=== PATIENT | female | born 1995 | race American Indian/Alaskan Native ===

== ENCOUNTER 2017-01-23 08:06 | Emergency (ER) | payer MEDICAID ==
[2017-01-23 08:16] VITALS: BP 101/63
[2017-01-23 08:43] LABS: Basophils % (Auto) 0.3 % (0.0-1.8); Eosinophils % (Auto) 0.3 % (0.0-4.3); Hematocrit 29.8 % (30.3-42.9); Hemoglobin 10.1 gm/dl (10.1-14.3); Mean Corpuscular HGB Conc 34 % (30-34); Mean Corpuscular Hemoglobin 30 pg (28-32); Mean Corpuscular Volume 89 fl (79-97); Red Blood Count 3.37 M/mm3 (3.65-5.03); Red Cell Distribution Width 12.5 % (13.2-15.2); White Blood Count 8.6 K/mm3 (4.5-11.0)
[2017-01-23 08:44] LABS: Platelet Count 90 K/mm3 (140-440)
[2017-01-23 09:01] LABS: Anion Gap 17 mmol/L; Blood Urea Nitrogen 9 mg/dL (7-17); Carbon Dioxide 22 mmol/L (22-30); Chloride 100.2 mmol/L (98-107); Glucose 65 mg/dL (65-100); Potassium 3.7 mmol/L (3.6-5.0); Sodium 135 mmol/L (137-145)
[2017-01-23 09:36] LABS: Bilirubin,Urine NEG (Negative); Blood,Urine NEG (Negative); Ketones,Urine TR mg/dL (Negative); Leukocyte Esterase,Urine NEG (Negative); Mucus,Urine 2+ /HPF; Nitrite,Urine NEG (Negative); Protein,Urine <15 mg/dL mg/dL (Negative); Urobilinogen,Urine < 2.0 mg/dL (<2.0)
--- NOTE | 2017-01-27 07:21 | ED Elopement Review ---
ED Pt Elopement review - Results review Lab results: Laboratory Tests 01/23/17 01/23/17 01/23/17 08:26 08:28 08:47 WBC 8.6 RBC 3.37 L Hgb 10.1 Hct 29.8 L MCV 89 MCH 30 MCHC 34 RDW 12.5 L Plt Count 90 L Lymph % (Auto) 23.7 [place] % (Auto) 8.1 H Eos % (Auto) 0.3 Baso % (Auto) 0.3 Lymph # 2.0 [place]ot # 0.7 Eos # 0.0 Baso # 0.0 Seg Neutrophils % 67.6 Seg Neutrophils # 5.8 Sodium 135 L Potassium 3.7 Chloride 100.2 Carbon Dioxide 22 Anion Gap 17 BUN 9 Creatinine 0.5 L Estimated GFR > 60 BUN/Creatinine Ratio 18.00 Glucose 65 Calcium 9.0 Urine Color Yellow Urine Turbidity Clear Urine pH 6.0 Ur Specific Horton 1.019 Urine Protein <15 mg/dl Urine Glucose (UA) Neg Urine Ketones Tr Urine Blood Neg Urine Nitrite Neg Urine Bilirubin Neg Urine Urobilinogen < 2.0 Ur Leukocyte Esterase Neg Urine WBC (Auto) 1.0 Urine RBC (Auto) 5.0 U Epithel Cells (Auto) 2.0 Urine Mucus 2+ - Call Back decision Pt Call Back Decision: No action required
== END 2017-01-23 17:25 | disposition left against medical advice (07) ==
LOC: ED 08:06
DX: R42 Dizziness and giddiness (principal); O26.893 Other specified pregnancy related conditions, third trimester; R50.9 Fever, unspecified; R51 Headache; Z3A.29 29 weeks gestation of pregnancy; Z53.21 Procedure and treatment not carried out due to patient leaving prior to being seen by health care provider
CPT/HCPCS: 36415; 80048; 81001; 85025; 93005; 93010

== ENCOUNTER 2017-02-07 21:21 | Outpatient (CLI) | payer MEDICAID ==
[2017-02-07 21:40] VITALS: BP 111/64
[2017-02-07] MEDS ORDERED: LACTATED RINGERS 1,000 ML IV ONE (21:40)
[2017-02-07 23:38] LABS: Bilirubin,Urine NEG (Negative); Blood,Urine NEG (Negative); Ketones,Urine NEG (Negative); Leukocyte Esterase,Urine NEG (Negative); Mucus,Urine 3+ /HPF; Nitrite,Urine NEG (Negative)
[2017-02-08] MEDS ORDERED: BRETHINE SUB-Q ONE (00:02)
[2017-02-08] MEDS ORDERED: BRETHINE ONE (00:04)
== END 2017-02-08 00:25 | disposition home or self-care (01) ==
LOC: TRG 21:21
PROVIDERS: ATTEND Obstetrics & Gynecology
DX: O26.893 Other specified pregnancy related conditions, third trimester (principal); R10.9 Unspecified abdominal pain; Z3A.32 32 weeks gestation of pregnancy
CPT/HCPCS: 36415; 59025; 81001; 82731; 96360; 96361; 96372; J3105; J7120

== ENCOUNTER 2017-03-25 16:25 | Outpatient (CLI) | payer MEDICAID ==
[2017-03-25 16:59] VITALS: BP 102/57
[2017-03-25] MEDS ORDERED: LACTATED RINGERS 500 ML IV ONE (17:18)
== END 2017-03-25 17:33 | disposition home or self-care (01) ==
LOC: TRG 16:25
PROVIDERS: ATTEND Obstetrics & Gynecology
DX: O47.1 False labor at or after 37 completed weeks of gestation (principal); Z3A.38 38 weeks gestation of pregnancy

== ENCOUNTER 2017-04-01 22:04 | Outpatient (CLI) | payer MEDICAID ==
[2017-04-01 22:20] VITALS: BP 108/73
[2017-04-01] MEDS ORDERED: LACTATED RINGERS 1,000 ML ONE (22:30)
[2017-04-01] MEDS ORDERED: VISTARIL ONE (23:40)
--- NOTE | 2017-04-02 12:33 | Ultrasound Report ---
BIOPHYSICAL PROFILE: 04/01/17 22:04:00 CLINICAL: Well Being FINDINGS: The biophysical profile was scored as followin - breathing movements 2 - movements 2 - posture and tone 2 - Qualitative amniotic fluid volume 8 - TOTAL SCORE OF POSSIBLE 8 Heart Rate (bpm) = 148 IMPRESSION: Normal study
--- NOTE | 2017-04-02 12:34 | Ultrasound Report ---
OB ULTRASOUND LIMITED: 04/01/17 CLINICAL: well being. FINDINGS: Gestation: Choudhary Position: Cephalic. Amniotic Fluid: Normal ANDREA = 10.1 cm Placenta: Posterior Placental Grade: II Heart Rate: 148 BPM IMPRESSION: Single live intrauterine fetus at 39 weeks based on clinical dating.
== END 2017-04-02 00:22 | disposition home or self-care (01) ==
LOC: TRG 22:04 → LD 23:29 → UNDOADMIN 23:29 → TRG 04-02 00:22
PROVIDERS: ATTEND Obstetrics & Gynecology
DX: O47.1 False labor at or after 37 completed weeks of gestation (principal); Z87.891 Personal history of nicotine dependence; Z3A.39 39 weeks gestation of pregnancy
CPT/HCPCS: 76815; 76819; 96360; J7120; Q0177

== ENCOUNTER 2017-04-02 06:00 | Outpatient (CLI) | payer MEDICAID ==
[2017-04-02 06:32] VITALS: BP 126/92
== END 2017-04-02 07:13 | disposition home or self-care (01) ==
LOC: TRG 06:00
PROVIDERS: ATTEND Obstetrics & Gynecology
DX: O47.1 False labor at or after 37 completed weeks of gestation (principal); Z87.891 Personal history of nicotine dependence; Z3A.39 39 weeks gestation of pregnancy
CPT/HCPCS: 59025

== ENCOUNTER 2017-04-03 19:14 | Inpatient (IN) | payer MEDICAID ==
[2017-04-03] MEDS ORDERED: STADOL IV PRN (21:26)
[2017-04-03] MEDS ORDERED: POLYCILLIN/NS 2 GM/100 ML 2 GM/100 ML BAG IV ONE (21:26)
[2017-04-03] MEDS: LACTATED RINGERS 1,000 ML IV SCH (22:23)
[2017-04-03 23:04] LABS: Basophils % (Auto) 0.1 % (0.0-1.8); Hematocrit 30.4 % (30.3-42.9); Mean Corpuscular HGB Conc 33 % (30-34); Mean Corpuscular Hemoglobin 28 pg (28-32); Mean Corpuscular Volume 84 fl (79-97); Platelet Count 102 K/mm3 (140-440); Red Blood Count 3.61 M/mm3 (3.65-5.03); White Blood Count 13.4 K/mm3 (4.5-11.0)
[2017-04-04] MEDS ORDERED: ePHEDrine SULFATE IV PRN (00:17)
[2017-04-04] MEDS ORDERED: NARCAN 2 MG/2 ML IV PRN (00:17)
--- NOTE | 2017-04-04 00:17 | Anesthesia Consultation ---
Anesthesia Consult and Med Hx Date of service: 04/04/17 - Airway Anesthetic Teeth Evaluation: Good ROM Head & Neck: Adequate Mental/Hyoid Distance: Adequate Mallampati Class: Class II Intubation Access Assessment: Good - Pulmonary Exam CTA: Yes - Cardiac Exam Cardiac Exam: No Murmur - Pre-Operative Health Status ASA Pre-Surgery Classification: ASA2 Proposed Anesthetic Plan: Epidural - Pulmonary Hx Asthma: No COPD: No Hx Pneumonia: No - Cardiovascular System Hx Hypertension: No - Central Nervous System Hx Seizures: No Hx Psychiatric Problems: No - Endocrine Hx Renal Disease: No Hx End Stage Renal Disease: No Hx Hypothyroidism: No Hx Hyperthyroidism: No - Hematic Hx Anemia: No Hx Sickle Cell Disease: No - Other Systems Hx Alcohol Use: No
[2017-04-04] MEDS: fentaNYL-BUPIV 2 MCG/ML-0.125% 200 MCG/100 ML BAG EPIDURAL SCH ×2 (00:38→08:12)
[2017-04-04] MEDS: POLYCILLIN/NS 1 GM/50 ML 1 GM/50 ML BAG IV SCH ×3 (02:52→11:00)
[2017-04-04] MEDS ORDERED: TYLENOL #3 PO ONE (05:26)
[2017-04-04] MEDS ORDERED: TYLENOL ONE (05:33)
[2017-04-04] MEDS ORDERED: TYLENOL PO ONE (05:40)
[2017-04-04] MEDS ORDERED: EMLA TP PRN (06:20)
[2017-04-04] MEDS ORDERED: REGLAN IV ONE (06:20)
[2017-04-04] MEDS ORDERED: BICITRA PO ONE (06:20)
[2017-04-04] MEDS ORDERED: PEPCID IV ONE (06:20)
--- NOTE | 2017-04-04 06:39 | History and Physical Report ---
History of Present Illness Date of examination: 04/04/17 Date of admission: 04/03/17 22:14 Chief complaint: Painful contractions History of present illness: Asked to see this 21-year-old at 39+ weeks admitted earlier in the p.m. by the odd piece checker. She is a [facility] patient. Patient was apparently admitted to rule out labor. She gives a history of unremarkable care. In triage, there is a report of thick mucous discharge but no pooling noted. Patient was admitted and observed. On the floor however patient with minimal variability initially. BPP obtained 8 out of 8. Patient subsequently developed a fever of 100.5 station with tachycardia. She has been started on Tylenol and ampicillin. Past History Past Medical History: no pertinent history Past Surgical History: no surgical history BIOANALYST History: denies: chlamydia, gonorrhea, hepatitis B, hepatitis C, herpes, HIV , syphilis, trichomonas Social history: single, full code. denies: smoking, alcohol abuse, prescription drug abuse, IV drug use - Obstetrical History Expected Date of Delivery: 04/08/17 Actual Gestation: 39 Week(s) 3 Day(s) : 1 Medications and Allergies Allergies Allergy/AdvReac Type Severity Reaction Status Date / Time No Known Allergies Allergy Verified 02/07/17 21:42 Home Medications Medication Instructions Recorded Confirmed Last Taken Type Acetaminophen [Acetaminophen TAB] 500 mg PO Q6HR #80 tablet 09/11/16 Unknown Rx Amoxicillin [Trimox CAP] 500 mg PO Q8H #30 capsule 09/11/16 Unknown Rx Active Meds: Active Medications Butorphanol Tartrate (Stadol) 2 mg IV Q2H PRN PRN Reason: Labor Pain Last Admin: 04/03/17 22:32 Dose: 2 mg Lactated Ringer's (Lactated Ringers) 1,000 mls @ 125 mls/hr IV DIRECT NIMO Last Admin: 04/03/17 22:23 Dose: 125 mls/hr Ampicillin Sodium (Polycillin/Ns 1 Gm/50 Ml) 1 gm in 50 mls @ 100 mls/hr IV Q4HR NIMO PRN Reason: Protocol Last Admin: 04/04/17 02:52 Dose: 100 mls/hr Fentanyl/Bupivacaine/Sodium Chlor (Fentanyl-Bupiv 2 Mcg/Ml-0.125%) 200 mcg in 100 mls @ 12 mls/hr EPIDURAL TITR NIMO PRN Reason: Protocol Last Admin: 04/04/17 00:38 Dose: 12 mls/hr Cefazolin Sodium (Ancef/Sterile Water 2 Gm/20 Ml) 2 gm in 20 mls @ 80 mls/hr IV PREOP NR PRN Reason: Protocol Stop: 04/04/17 07:14 Lactated Ringer's (Lactated Ringers) 1,000 mls @ 2,250 mls/hr IV PREOP NIMO Stop: 04/05/17 07:27 Oxytocin/Sodium Chloride (Pitocin/Ns 20 Unit/1000ml Drip) 20 units in 1,000 mls @ 0 mls/hr IV TITR NIMO PRN Reason: As Directed Gentamicin Sulfate/Sodium Chloride (Garamycin/Ns 80 Mg/100 Ml) 100 mls @ 200 mls/hr IV Q8H NIMO Lidocaine/Prilocaine (Emla) 1 applic TP ONCE PRN PRN Reason: for logan catheter insertion Stop: 04/04/17 07:19 Review of Systems Constitutional: fever Cardiovascular: no chest pain, no orthopnea, no palpitations, no lightheadedness , no shortness of breath, no dyspnea on exertion Respiratory: no cough with sputum, no shortness of breath, no dyspnea on exertion Gastrointestinal: no abdominal pain, no nausea, no vomiting, no diarrhea Genitourinary: vaginal discharge, no vaginal bleeding - Vital Signs Vital signs: Vital Signs Pulse BP 115 H 104/66 04/03/17 19:51 04/03/17 19:51 Temp Pulse Resp BP Pulse Ox 100.9 F H 112 H 20 106/50 97 04/04/17 05:15 04/04/17 06:28 04/04/17 05:15 04/04/17 06:26 04/04/17 06:28 - Physical Exam Lungs: Positive: Clear to auscultation Abdomen: Positive: normal appearance, soft. Negative: distention, tenderness, guarding, rigidity Genitourinary (Female): Positive: normal external genitalia Uterus: Positive: enlarged (EFW ~ 3400). Negative: tender Extremities: Positive: normal - Obstetrical FHR: category 2 ( tachycardia) Cervical Dilatation: 6.5 station: -1 Results Result Diagrams: 04/03/17 22:15 Abnormal lab results 07/09/17 Range/Units 22:15 WBC 13.4 H (4.5-11.0) K/mm3 RBC 3.61 L (3.65-5.03) M/mm3 Hgb 10.0 L (10.1-14.3) gm/dl Plt Count 102 L (140-440) K/mm3 Lymph % (Auto) 9.5 L (13.4-35.0) % Stafford % (Auto) 13.7 H (0.0-7.3) % Stafford # 1.8 H (0.0-0.8) K/mm3 Seg Neutrophils % 76.7 H (40.0-70.0) % Seg Neutrophils # 10.3 H (1.8-7.7) K/mm3 All other labs normal. Assessment and Plan A: Onzacmyt-vjow-lge at 39+3 weeks in active labor -Cat 2 tracing P: -Will start Gentamicin to regimine -No improvement in ~ 30 minutes proceed to -She has been consented - Patient Problems (1) 39 weeks gestation of Current Visit: Yes Status: Acute (2) Active labor at term Current Visit: Yes Status: Acute (3) tachycardia Current Visit: Yes Status: Acute
[2017-04-04] MEDS ORDERED: ANCEF/STERILE WATER 2 GM/20 ML 2 GM/20 ML SYRINGE IV NR (07:00)
[2017-04-04] MEDS ORDERED: GARAMYCIN/NS 80 MG/100 ML 100 ML IV SCH (07:00)
[2017-04-04] MEDS ORDERED: LACTATED RINGERS 1,000 ML IV SCH (07:00)
[2017-04-04] MEDS ORDERED: PITOCin/NS 20 UNIT/1000ML DRIP 20 UNITS/1,000 ML BAG IV SCH (07:00)
--- NOTE | 2017-04-04 07:52 | Ultrasound Report ---
ULTRASOUND BIOPHYSICAL PROFILE: History: well being, nonreactive stress test Technique: Transabdominal ultrasound with Doppler interrogation. 2 - breathing movements 2 - movements 2 - posture and tone 2 - Qualitative amniotic fluid volume 8 - TOTAL SCORE OF POSSIBLE 8 Heart Rate (bpm) 168
--- NOTE | 2017-04-04 08:51 | Event Note ---
Date: 04/04/17 O: VE /+1, FSE and IUPC placed, CAT II tracing A: Active labor P: Expect Dr. [place] updated regarding condition
[2017-04-04] MEDS ORDERED: XYLOCAINE MPF 2% ONE ×2 (08:52→12:44)
[2017-04-04] MEDS ORDERED: PITOCin/NS 30 UNIT/500ML 30,000 MILLIUNITS/500 ML BAG IV ONE (11:39)
[2017-04-04] MEDS: LACTATED RINGERS 1,000 ML IV SCH (11:52)
[2017-04-04] MEDS ORDERED: TYLENOL PR PRN (13:06)
[2017-04-04] MEDS ORDERED: CYTOTEC ONE (13:51)
--- NOTE | 2017-04-04 14:05 | Procedure Note ---
OB Delivery Note - Delivery Date of Delivery: 04/04/17 Surgeon: HEBERT LAU Estimated blood loss: 300cc - Vaginal Delivery presentation: vertex Delivery position: OA Intrapartum events: febrile- temp >100.3, foul smelling fluid, mult. late decelerations Delivery induction: none Delivery augmentation: pitocin Delivery monitor: external FHT, external uterine, internal FHT, internal uterine Route of delivery: Delivery placenta: spontaneous Delivery cord: nuchal cord, 3 umbilical vessels Episiotomy: none Delivery laceration: none Anesthesia: epidural Delivery comments: of a viable male delivered thru nuchal cord over intact perineum at 1337 on 04/04/2017. Apgars 7/7, weight 7# 9oz. Baby temp 102.4 at delivery and taken to NICU for observation. Placenta to pathology. - Infant A at 1 minute: 7 at 5 minutes: 7 Infant Gender: Male (7#9oz)
[2017-04-04] MEDS ORDERED: BENADRYL PO PRN (14:07)
[2017-04-04] MEDS ORDERED: LANSINOH TP PRN (14:07)
[2017-04-04] MEDS ORDERED: DULCOLAX PR PRN (14:07)
[2017-04-04] MEDS ORDERED: TYLENOL PO PRN (14:07)
[2017-04-04] MEDS ORDERED: PHENERGAN PO PRN (14:07)
[2017-04-04] MEDS ORDERED: CYTOTEC PR ONE (14:14)
[2017-04-04] MEDS ORDERED: MOTRIN PO ONE (14:15)
[2017-04-04] MEDS ORDERED: METHERGINE IM ONE (14:42)
[2017-04-04] MEDS ORDERED: SODIUM CHLORIDE FLUSH SYRINGE 10 ML IV NR (15:00)
[2017-04-04] MEDS: MOTRIN PO SCH (18:39)
[2017-04-05 05:32] LABS: Hematocrit 26.1 % (30.3-42.9); Hemoglobin 8.6 gm/dl (10.1-14.3)
[2017-04-05] MEDS: NORCO 5/325 PO PRN (09:24)
--- NOTE | 2017-04-05 09:30 | Progress Note ---
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 GBS +. Infant in NICU after delivery temp of 102.4. Patient reports: appetite normal, voiding normally, pain well controlled, ambulating normally, other : in NICU Objective - Vital Signs Latest vital signs: Vital Signs Temp Pulse Pulse Resp BP BP 04/05/17 08:13 98.4 F 87 18 100/61 04/05/17 05:00 98.4 F 82 18 83/41 04/05/17 02:00 98.5 F 86 18 86/51 04/04/17 22:03 97.8 F 91 H 20 107/70 04/04/17 16:11 99.5 F 93 H 20 106/67 04/04/17 15:03 116 H 109/67 04/04/17 15:00 99.5 F 116 H 20 109/69 04/04/17 14:40 108 H 117/69 04/04/17 14:25 109 H 115/71 04/04/17 14:18 109 H 122/70 04/04/17 14:00 100.4 F H 109 H 20 116/69 04/04/17 13:55 117 H 116/69 04/04/17 13:40 123 H 99/50 04/04/17 13:26 114 H 121/69 04/04/17 13:10 108 H 126/75 04/04/17 12:57 116 H 128/72 04/04/17 12:42 145/87 04/04/17 12:27 122/82 04/04/17 11:55 111 H 105/63 04/04/17 11:40 109 H 102/59 04/04/17 11:26 117 H 142/72 04/04/17 11:12 112 H 130/76 04/04/17 10:55 97 H 128/79 04/04/17 10:41 93 H 117/69 04/04/17 10:25 98 H 105/64 04/04/17 10:10 103 H 115/68 04/04/17 09:55 105 H 111/58 04/04/17 09:42 100 H 111/68 Intake and Output 04/04/17 04/05/17 04/05/17 22:59 06:59 14:59 Intake Total 240 120 Balance 240 120 Intake: Oral 120 Intake, Free Water 240 Other: Total, Intake Amount 120 # Voids Indwelling Catheter 2 1 - Exam Narrative Exam: Deferred due to mother out of room Breasts: Present: deferred Cardiovascular: Present: Regular rate Lungs: Present: Normal air movement Vulva: both: normal (lochia scant) Uterus: Present: fundal height below umbilicus Extremities: Present: normal Deep Tendon Reflex Grade: Normal +2 - Labs Labs: Abnormal lab results 04/05/17 Range/Units 05:05 Hgb 8.6 L (10.1-14.3) gm/dl Hct 26.1 L (30.3-42.9) % - Allied health notes Allied health notes reviewed: nursing (RN reports that patient is doing well. Reports no problems.)
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
[2017-04-05] MEDS: MOTRIN PO SCH (16:24)
[2017-04-06 08:35] VITALS: BP 94/55
[2017-04-06] MEDS: NORCO 5/325 PO PRN (08:46)
== END 2017-04-06 16:30 | disposition home or self-care (01) | DRG 774 ==
LOC: TRG 19:14 → LD 19:15 → TRG 22:13 → LD 22:14 → OB 04-04 15:58
PROVIDERS: ADMIT Obstetrics & Gynecology; ATTEND Obstetrics & Gynecology
PROC: 10E0XZZ Delivery of Products of Conception, External Approach (ICD-10-PCS; principal; 2017-04-04)
PROC: 3E0R3BZ Introduction of Anesthetic Agent into Spinal Canal, Percutaneous Approach (ICD-10-PCS; 2017-04-04)
PROC: 00HU33Z Insertion of Infusion Device into Spinal Canal, Percutaneous Approach (ICD-10-PCS; 2017-04-04)
DX: O76 Abnormality in fetal heart rate and rhythm complicating labor and delivery (principal); O75.2 Pyrexia during labor, not elsewhere classified; O69.81X0 Labor and delivery complicated by cord around neck, without compression, not applicable or unspecified; Z37.0 Single live birth; Z3A.39 39 weeks gestation of pregnancy
CPT/HCPCS: 36415; 76819; 85014; 85018; 85025; 86850; 86900; 86901; 88307; 96372; 99211; A6250; G0463; J0290; J0595; J0690; J1580; J2210; J2590; J2765; J7120

== ENCOUNTER 2018-06-17 15:41 | Emergency (ER) | payer OTHER, MEDICAID ==
[2018-06-17 15:51] VITALS: BP 105/66
[2018-06-17 16:32] LABS: HCG Qualitative,Urine Negative (Negative)
[2018-06-17] MEDS ORDERED: FLEXERIL PO ONE (17:39)
[2018-06-17] MEDS ORDERED: NORCO 5/325 PO ONE (17:40)
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
== END 2018-06-17 18:39 | disposition home or self-care (01) ==
LOC: ED 15:41
DX: M62.838 Other muscle spasm (principal); V89.2XXA Person injured in unspecified motor-vehicle accident, traffic, initial encounter; R51 Headache; Y93.89 Activity, other specified; Y99.8 Other external cause status; Y92.410 Unspecified street and highway as the place of occurrence of the external cause
CPT/HCPCS: 70450; 72125; 81025

== ENCOUNTER 2019-04-07 00:14 | Emergency (ER) | payer MEDICAID, OTHER ==
[2019-04-07 00:23] VITALS: BP 112/60
[2019-04-07 00:44] LABS: Basophils % (Auto) 0.3 % (0.0-1.8); Eosinophils % (Auto) 0.4 % (0.0-4.3); Hematocrit 34.2 % (30.3-42.9); Lymphocytes # (Auto) 2.8 K/mm3 (1.2-5.4); Lymphocytes % (Auto) 34.6 % (13.4-35.0); Mean Corpuscular HGB Conc 35 % (30-34); Mean Corpuscular Volume 88 fl (79-97); Monocytes # (Auto) 0.6 K/mm3 (0.0-0.8); Monocytes % (Auto) 7.3 % (0.0-7.3); Platelet Count 173 K/mm3 (140-440); Red Blood Count 3.91 M/mm3 (3.65-5.03); Red Cell Distribution Width 13.9 % (13.2-15.2)
[2019-04-07 01:06] LABS: BUN/Creatinine Ratio 17; Blood Urea Nitrogen 12 mg/dL (7-17); Calcium 9.1 mg/dL (8.4-10.2); Hemolysis Index 11
== END 2019-04-07 03:35 | disposition left against medical advice (07) ==
LOC: ED 00:14
DX: R11.0 Nausea (principal); Z53.21 Procedure and treatment not carried out due to patient leaving prior to being seen by health care provider
CPT/HCPCS: 36415; 80048; 84702; 85025

== ENCOUNTER 2019-08-12 19:03 | Outpatient (CLI) | payer MEDICAID ==
[2019-08-12] MEDS ORDERED: LACTATED RINGERS 500 ML IV ONE (19:14)
[2019-08-12 19:45] VITALS: BP 119/68
[2019-08-12 19:54] LABS: Bilirubin,Urine NEG (Negative); Blood,Urine NEG (Negative); Color,Urine Yellow (Yellow); Mucus,Urine 1+ /HPF; Protein,Urine <15 mg/dL mg/dL (Negative)
== END 2019-08-12 20:40 | disposition home or self-care (01) ==
LOC: TRG 19:03
PROVIDERS: ATTEND Obstetrics & Gynecology
DX: O62.9 Abnormality of forces of labor, unspecified (principal); Z3A.23 23 weeks gestation of pregnancy
CPT/HCPCS: 81001; J7120; 82962; 96360

== ENCOUNTER 2019-09-01 17:58 | Outpatient (CLI) | payer MEDICAID ==
[2019-09-01 18:12] VITALS: BP 117/71
--- NOTE | 2019-09-01 19:22 | Ultrasound Report ---
ULTRASOUND OB LIMITED INDICATION / CLINICAL INFORMATION: Bleeding . COMPARISON: None available. FINDINGS: AMNIOTIC FLUID INDEX (cm) = 25.1 PRESENTATION: Cephalic. Cervical length measures 3.6 cm. PLACENTA: Anterior and grade 2. No evidence of abruption. HEART RATE (beats per minute): 145 IMPRESSION: No evidence of placental abruption. Signer Name: Jarek Estrada MD Signed: 09/01/2019 7:18 PM Workstation Name: [id number]
== END 2019-09-01 19:50 | disposition home or self-care (01) ==
LOC: TRG 17:58
PROVIDERS: ATTEND Obstetrics & Gynecology
DX: O47.02 False labor before 37 completed weeks of gestation, second trimester (principal); Z3A.27 27 weeks gestation of pregnancy
CPT/HCPCS: 76815

== ENCOUNTER 2019-10-14 01:39 | Outpatient (CLI) | payer MEDICAID ==
[2019-10-14 02:02] VITALS: BP 103/59
== END 2019-10-14 03:03 | disposition home or self-care (01) ==
LOC: TRG 01:39
PROVIDERS: ATTEND Obstetrics & Gynecology
DX: O47.02 False labor before 37 completed weeks of gestation, second trimester (principal); Z3A.32 32 weeks gestation of pregnancy
CPT/HCPCS: 59025

== ENCOUNTER 2019-11-12 13:06 | Outpatient (CLI) | payer MEDICAID ==
[2019-11-12 13:34] VITALS: BP 106/66
[2019-11-12] MEDS ORDERED: LACTATED RINGERS 1,000 ML IV SCH (14:00)
== END 2019-11-12 15:27 | disposition home or self-care (01) ==
LOC: TRG 13:06
PROVIDERS: ATTEND Obstetrics & Gynecology
DX: O26.853 Spotting complicating pregnancy, third trimester (principal); O21.0 Mild hyperemesis gravidarum; Z3A.37 37 weeks gestation of pregnancy
CPT/HCPCS: 59025

== ENCOUNTER 2019-12-01 17:25 | Outpatient (CLI) | payer MEDICAID ==
--- NOTE | 2019-12-01 17:37 | Event Note ---
Date: 12/01/19 (Contractions that restarted 4 hours ago) Pt is 24 y.o. @ 39+ wks with contractions that restarted 4 hours ago. States that she was seen in triage earlier this AM and was told that she was /-3. She remained unchanged during the triage visit and was sent home. She came back to triage today and states that her contractions have restarted 4 hours ago and are stronger. Cervical exam this visit 2.5-/-3. Will have coil wrapper start some fluids and have pt walk to see if any cervical change. Pt aware of plan and agrees.
[2019-12-01 17:53] VITALS: BP 108/63
[2019-12-01] MEDS ORDERED: LACTATED RINGERS 1,000 ML IV SCH (18:30)
--- NOTE | 2019-12-01 19:32 | Event Note ---
Date: 12/01/19 (Pt appears comfortable in triage stretcher) Pt has walked for an hour and appears to be comfortable while laying on triage stretcher. Cervical exam remains unchanged at this time after one hour of walking (2.5-3/-3). Labor precautions given. Pt to be discharged home in stable condition.
== END 2019-12-01 19:35 | disposition home or self-care (01) ==
LOC: TRG 17:25
PROVIDERS: ATTEND Obstetrics & Gynecology
DX: O62.9 Abnormality of forces of labor, unspecified (principal); O48.0 Post-term pregnancy; Z3A.40 40 weeks gestation of pregnancy
CPT/HCPCS: 96360; 96361; J7120

== ENCOUNTER 2020-02-09 17:51 | Emergency (ER) | payer MEDICAID ==
[2020-02-09 17:57] VITALS: BP 117/75
== END 2020-02-09 19:35 | disposition left against medical advice (07) ==
LOC: ED 17:51
DX: K08.89 Other specified disorders of teeth and supporting structures (principal); Z53.21 Procedure and treatment not carried out due to patient leaving prior to being seen by health care provider

== ENCOUNTER 2020-03-13 21:04 | Emergency (ER) | payer MEDICAID | END 2020-03-13 21:07 | disposition left against medical advice (07) | LOC: ED 21:04 | DX: K08.89 Other specified disorders of teeth and supporting structures (principal); Z53.21 Procedure and treatment not carried out due to patient leaving prior to being seen by health care provider ==

== ENCOUNTER 2022-05-15 05:02 | Emergency (ER) | payer MEDICAID ==
[2022-05-15 06:07] VITALS: BP 116/70
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
== END 2022-05-15 07:17 ==
LOC: ED 05:02
DX: Z04.1 Encounter for examination and observation following transport accident (principal); Z72.89 Other problems related to lifestyle; Z79.899 Other long term (current) drug therapy; V87.7XXA Person injured in collision between other specified motor vehicles (traffic), initial encounter; R56.9 Unspecified convulsions; Y93.89 Activity, other specified; Y92.488 Other paved roadways as the place of occurrence of the external cause; Y99.8 Other external cause status
CPT/HCPCS: 99283